=== PATIENT | male | born 1980 | race Hispanic/Latino ===

== ENCOUNTER 2022-04-18 23:04 | Observation (INO) | payer BC, SELFPAY ==
--- OUTSIDE RECORDS SUMMARY | 2022-04-18 23:07 | XMS REPORT | Continuity of Care Document ---
:1980 Author Organization [facility] t Address [address] [place] [address] Care Team Providers Name Role Phone PCP Primary Care Physician Unavailable Nila Bustos Attending Clinician Unavailable Eduardo WHITAKER S Attending Clinician Unavailable ALEKSEY Attending Clinician Unavailable Lab, Fam Pob I Attending Clinician Unavailable Ebrahim STUDENT Attending Clinician EBRAHIM Attending Clinician Unavailable Doctor Unassigned, Name Attending Clinician Unavailable Payers Payer Name Policy Type Policy Number Effective Date Expiration Date S ource Problems This patient has no known problems. Allergies, Adverse Reactions, Alerts Allergy Allergy Status Severity Reaction(s) Onset Inactive Treating Comm ents Source Name Type Date Date Clinician NO KNOWN Drug Active Univers ALLERGIE Class [facility] Social History Social Habit Start Date Stop Date Quantity Comments Source Exposure to Not sure [facility] SARS-CoV-2 (event) Medica l Branch Sex Assigned At [birth year] [facility] 00:00:00 00:00:00 [facility] Smoking Status Start Date Stop Date Source Unknown if ever smoked [facility] Medications This patient has no known medications. Procedures This patient has no known procedures. Encounters Start End Encounter Admission Attending Care Care Encounter Source Date/Time Date/Time Type Type Clinicians Facility Department ID 2021-06-22 2021-06-22 Telephone ISAURA Clark [id number] Univers 00:00:00 00:00:00 Elba Evie LEVAR [id number] [facility] [id number] Oleksandr as [phone] [address] 2021-06-21 2021-06-21 Outpatient R [facility] [id number] Univers 16:10:00 16:10:00 [id number] [facility] 2021-06-21 2021-06-21 Outpatient R ALEKSEY, [facility] [id number] Univers 16:10:00 16:10:00 A[place]RIA [facility] 2021-06-17 2021-06-17 Laboratory Lab, Adc Fam Pob I [facility] [id number] Univers 14:40:02 15:00:02 Only Petra Choi [facility] [id number] ity of [place] [id number] Oleksandr as Professio [phone] [address] Office [address] 2021-06-17 2021-06-17 Outpatient R ROSSANA [facility] [id number] Univers 14:20:00 14:20:00 JONATHONPALMA [facility] 2021-06-17 2021-06-17 Letter Doctor ISAURA [id number] Univers 00:00:00 00:00:00 (Out) Unassigned, LEVAR [id number] ity of [place] [facility] [id number] Oleksandr as [phone] [address] 2021-06-17 2021-06-17 Letter Doctor ISAURA [id number] Univers 00:00:00 00:00:00 (Out) Unassigned, LEVAR [id number] ity of [place] [facility] [id number] Oleksandr as [phone] [address] Results Test Description Test Time Test Comments Results Result Comments Source LIPID PANEL 2021-12-17 06:33:30 Test Item Value Reference Range Interpretation Comme nts CHOLESTEROL (test code = 2210) 222 MG/DL <200 H TRIGLYCERIDES (test code = 2232) 305 MG/DL <150 H HDL CHOLESTEROL (test code = 53 MG/DL >39 2220) CALC LDL CHOL (test code = 2237) 125 MG/DL <100 H NOTE: CALCULATED LDL IS BASED ON CAILIN-MARTIN METHOD WHICHINCLUDES A DJUSTABLE TRIGLYCERIDE:VL DL CHOLESTEROL RATIO.THIS FACT OR VARIES BY MEASURED TRIGLY CERIDE AND NON-HDLCHOLESTE ROL CONCENTRATIONS WITH INCREASED CALCULATED LDL SEENIN HIGHER T RIGLYCERIDE OR LOWER NON-HDL S PECIMENS. FOR MOREINFORMATION , SEE CLIENT ANNOUNCEMENT AT [email or web address] RATIO LDL/HDL (test code = 2.36 RATIO <3.55 2237) COMPREHENSIVE METABOLIC [id number] 06:33:30 Test Item Value Reference Range Interpretation Comments GLUCOSE (test code = 127 MG/DL 70-99 H 2216) BUN (test code = 11 MG/DL 6-20 2207) CREATININE (test 0.76 MG/DL 0.80-1.40 L code = 221) eGFR (2020 CKD-EPI) 114 >60 (test code = 35400) ML/MIN/1.73 CALC BUN/CREAT (test 14 RATIO 6-28 code = 2235) SODIUM (test code = 138 MEQ/L 101-940 6798) POTASSIUM (test code 4.4 MEQ/L 3.5-5.4 = 2227) CHLORIDE (test code 101 MEQ/L 95-107 = 2214) CARBON DIOXIDE (test 23 MEQ/L 19-31 code = 2206) CALCIUM (test code = 9.8 MG/DL 8.5-10.5 2208) PROTEIN, TOTAL (test 6.6 G/DL 6.1-8.3 code = 2229) ALBUMIN (test code = 4.0 G/DL 3.5-5.2 2200) CALC GLOBULIN (test 2.6 G/DL 1.9-3.7 code = 2240) CALC A/G RATIO (test 1.5 RATIO 1.0-2.6 code = 2234) BILIRUBIN, TOTAL <0.2 MG/DL See_Comment [Automated message] (test code = 2207) The [employer] which generated this result transmitted ref erence range: <=1.2. T he reference range was not used to int erpret this result as normal/abnormal . ALKALINE PHOSPHATASE 82 U/L 40-119 (test code = 2204) AST (test code = 22 U/L 9-50 2217) ALT (test code = 32 U/L 5-50 UNLE SS 2219) OTHERWISE INDIC ATED, ALL TESTING PER FORMED ATCLINICAL PATH [facility]LOGY LAB[facility]ATOR[facility], I [place]. [address] [place] [address] LABORATORY DIRE CTOR: JIMMIE MCNAIR M.D. ALEXXIA NUMBER [id number] CAP ACCREDITATION N O. [id number] HEMOGLOBIN [id number] 03:44:08 Test Item Value Reference Range Interpretation Comments HEMOGLOBIN A1c (test code = 26035) 6.2 % 4.2-5.6 H CBC W/AUTO DIFF WITH [id number] 02:23:37 Test Item Value Reference Range Interpretation Comments WBC (test code = 6.4 K/UL 3.5-11.0 1001) RBC (test code = 4.29 M/UL 4.50-6.10 L 1002) HEMOGLOBIN (test code 14.2 G/DL 13.5-17.0 = 1003) HEMATOCRIT (test code 38.8 % 40.0-51.0 L = 1004) MCV (test code = 90.4 fL 80.0-99.0 1005) MCH (test code = 33.1 PG 25.0-33.0 H 1006) MCHC (test code = 36.6 G/DL 31.0-36.0 H 1007) RDW (test code = 13.1 % 11.5-15.0 1038) NEUTROPHILS (test 62.1 % code = 1008) LYMPHOCYTES (test 27.1 % code = 1010) MONOCYTES (test code 6.1 % = 1011) EOSINOPHILS (test 3.7 % code = 1012) BASOPHILS (test code 0.5 % = 1013) IMMATURE GRANULOCYTES 0.5 % (test code = 1036) NUCLEATED RBCS (test 0.0 /100 See_Comment [Autom ated code = 1065) WBC'S message] The sy stem which generated this result transmitted reference range : 0.0. The refere nce range was not u sed to interpret th is result as normal/abnormal . PLATELET COUNT (test 269 K/UL 130-400 code = 1015) ABSOLUTE NEUTROPHILS 4.00 K/UL 1.50-7.50 (test code = 1066) ABSOLUTE LYMPHOCYTES 1.74 K/UL 1.00-4.00 (test code = 1067) ABSOLUTE MONOCYTES 0.39 K/UL 0.20-1.00 (test code = 1068) ABSOLUTE EOSINOPHILS 0.24 K/UL 0.00-0.50 (test code = 1040) ABSOLUTE BASOPHILS 0.03 K/UL 0.00-0.20 (test code = 1069) ABS IMMATURE 0.03 K/UL 0.00-0.10 GRANULOCYTES (test code = 1020) ABS NUCLEATED RBCS 0.00 K/UL 0.00-0.11 (test code = 11055) [facility] [address] [address] Patient Name: Higinio Tam Medical Record#: [id number] Address: [address] [place] [address] City/State/Zip: [place] [address]: Igor Bustos MD Insurance: Self Pay /Age/Sex: 1980/41/M Admit/Reg Date: 02/02/[address]: Eulogio Sepulveda DO Location: SETED/ PCP: PCP,UNKNOWN Date of Service: 02/02/22 Order (s): XR chest 1V CPT Code: 64575 Report Number: [id number] Reason for Exam: Chest Pain CHEST SINGLE VIEW: REASON FOR STUDY: Chest Pain FINDINGS: Cardiomediastinal structures are within normal limits. No pleural fluid or pulmonary infiltrates are identified. The bony architecture appears intact, where adequately seen. IMPRESSION: No active cardiopulmonary process is identified. Dictated By: Sherif Barrientos MD 02/02/2214 Signed By: Sherif Barrientos MD 02/02/2214 TD/TT: 02/02/22613 Tech: WVB02 cc: PCPUNK; PENKE02* Eulogio Sepulveda DO; PCP,UNKNOWN
[2022-04-18 23:56] LABS: Absolute Lymphocytes (CBC) 1.9 K/uL (0.7-4.9); Hematocrit 40.8 % (39.6-49.0); MPV 7.9 fL (7.6-11.3); Protime INR 0.82; RBC Red Blood Cell Count 4.46 M/uL (4.33-5.43)
[2022-04-18] MEDS ORDERED: MORPHINE 4 MG/ML SYR ONE (23:57)
[2022-04-18] MEDS ORDERED: ONDANSETRON 4 MG/2 ML VIAL ONE (23:57)
[2022-04-18] MEDS ORDERED: PANTOPRAZOLE 40 MG INJ ONE (23:57)
[2022-04-18] MEDS ORDERED: NA CHLORIDE 0.9% 500 ML ONE (23:58)
[2022-04-18] MEDS ORDERED: NA CHLORIDE 0.9% 1,000 ML ONE (23:58)
[2022-04-19 00:18] LABS: ALT/SGPT 54 U/L (12-78); AST/SGOT 27 U/L (15-37); Albumin 3.1 g/dL (3.4-5.0); Alkaline Phosphatase 71 U/L (45-117); BUN Blood Urea Nitrogen 14 mg/dL (7-18); Bicarbonate 26 mmol/L (21-32); Bilirubin Total 0.1 mg/dL (0.2-1.0); Glomerular Filtration Rate 86 ml/min (=/>90); Glucose Level 129 mg/dL (74-106); Lipase 249 U/L (73-393); Magnesium 1.8 mg/dL (1.8-2.4); NT PRO-BNP 34 pg/mL (<125); Potassium 4.6 mmol/L (3.5-5.1); Sodium Level 135 mmol/L (136-145); Troponin High Sensitivity 5.7 pg/mL (<58.9)
[2022-04-19 00:29] LABS: Bilirubin Direct < 0.1 mg/dL (0-0.2)
--- NOTE | 2022-04-19 01:42 | EDPHYS ---
Physician Documentation [facility] Name: Alan Tello Jr Age: 41 yrs Sex: Male : 1980 Arrival Date: 04/18/2022 Time: 23:04 Bed 5 Private MD: ED Physician Liam Em HPI: 04/18 23:32 This 41 yrs old Male presents to ER via Unassigned with complaints of Chest slade Pain. 23:32 The patient or guardian reports chest pain that is located primarily in the substernal slade area, anterior chest wall, right. Onset: 10 day(s) ago. The pain radiates to Associated signs and symptoms: The patient has no apparent associated signs or symptoms. The chest pain is described as a pressure. Duration: The patient or guardian reports multiple episodes, with no pattern. Modifying factors: The symptoms are alleviated by nothing. the symptoms are aggravated by nothing. Severity of pain: At its worst the pain was moderate in the emergency department the pain is unchanged. The patient has not experienced similar symptoms in the past. Historical: - Allergies: 23:39 No Known Allergies; vc1 - Home Meds: 23:39 lisinopril HCTZ 25-15 [Active]; vc1 - PSHx: 23:39 None; vc1 - Immunization history:: Adult Immunizations up to date, Client reports receiving the 2nd dose of the Covid vaccine. - Social history:: Smoking status: Patient reports the use of cigarette tobacco products, smokes two packs cigarettes per day. - Family history:: not pertinent. ROS: 23:32 Constitutional: Negative for fever, chills, and weight loss, Eyes: Negative for injury, slade pain, redness, and discharge, ENT: Negative for injury, pain, and discharge, Neck: Negative for injury, pain, and swelling, Cardiovascular: Negative for chest pain, palpitations, and edema, Respiratory: Negative for shortness of breath, cough, wheezing, and pleuritic chest pain, Back: Negative for injury and pain, : Negative for injury, bleeding, discharge, and swelling, MS/Extremity: Negative for injury and deformity, Skin: Negative for injury, rash, and discoloration, Neuro: Negative for headache, weakness, numbness, tingling, and seizure. 23:32 Abdomen/GI: Positive for abdominal pain, nausea, of the right upper quadrant. Exam: 23:32 Constitutional: This is a well developed, well nourished patient who is awake, alert, slade and in no acute distress. Head/Face: Normocephalic, atraumatic. Eyes: Pupils equal round and reactive to light, extra-ocular motions intact. Lids and lashes normal. Conjunctiva and sclera are non-icteric and not injected. Cornea within normal limits. Periorbital areas with no swelling, redness, or edema. ENT: Nares patent. No nasal discharge, no septal abnormalities noted. Tympanic membranes are normal and external auditory canals are clear. Oropharynx with no redness, swelling, or masses, exudates, or evidence of obstruction, uvula midline. Mucous membranes moist. Neck: Trachea midline, no thyromegaly or masses palpated, and no cervical lymphadenopathy. Supple, full range of motion without nuchal rigidity, or vertebral point tenderness. No Meningismus. Chest/axilla: Normal chest wall appearance and motion. Nontender with no deformity. No lesions are appreciated. Cardiovascular: Regular rate and rhythm with a normal S1 and S2. No gallops, murmurs, or rubs. Normal PMI, no JVD. No pulse deficits. Respiratory: Lungs have equal breath sounds bilaterally, clear to auscultation and percussion. No rales, rhonchi or wheezes noted. No increased work of breathing, no retractions or nasal flaring. Back: No spinal tenderness. No costovertebral tenderness. Full range of motion. Male : Normal genitalia with no discharge or lesions. Skin: Warm, dry with normal turgor. Normal color with no rashes, no lesions, and no evidence of cellulitis. MS/ Extremity: Pulses equal, no cyanosis. Neurovascular intact. Full, normal range of motion. Neuro: Awake and alert, GCS 15, oriented to person, place, time, and situation. Cranial nerves II-XII grossly intact. Motor strength 5/5 in all extremities. Sensory grossly intact. Cerebellar exam normal. Normal gait. Psych: Awake, alert, with orientation to person, place and time. Behavior, mood, and affect are within normal limits. 23:32 Abdomen/GI: Inspection: abdomen appears normal, Bowel sounds: normal, Palpation: moderate abdominal tenderness, in the right upper quadrant, Liver: no appreciated palpable abnormalities, Hernia: not appreciated. Vital Signs: 23:37 BP 125 / 72; Pulse 84; Resp 20; Temp 98.5(O); Pulse Ox 99% on R/A; Weight 108.86 kg; oe Height 5 ft. 9 in. (175.26 cm); 04/19 01:31 BP 133 / 71; Pulse 71; Resp 21 S; Pulse Ox 96% on R/A; as6 04:00 BP 121 / 67; Pulse 75; Resp 15 S; Pulse Ox 99% on R/A; as6 04/18 23:37 Body Mass Index 35.44 (108.86 kg, 175.26 cm) oe MDM: 04/18 23:22 Patient medically screened. slade 23:35 Differential diagnosis: abnormal EKG, acute myocardial infarction, anxiety, coronary slade artery disease chest wall pain, cholecystitis, Cholelithiasis esophagitis, hiatal hernia, pneumonia, stable angina, unstable angina. HEART Score: History: Slightly Suspicious (0), ECG: Normal (0), Age: < or = 45 years (0), Risk Factors: 1 or 2 risk factors (1), [+ Family HX] [Obesity] Troponin: < or = 1 x Normal Limit (0), Total Score = 1. The patient was given aspirin in the Emergency Department. The patient's deep vein thrombosis risk score was calculated as follows: Total Score: 0. This patient was found to be at low risk for a deep vein thrombosis by using the Well's assessment criteria. The patient's pulmonary embolism risk score was calculated as follows: Total Score: 0-2 points. This patient was found to be at low risk for a pulmonary embolism by using the Well's assessment criteria. ANASTASIIA Risk Score: TOTAL SCORE = 0. Data reviewed: vital signs, nurses notes, lab test result(s), EKG, radiologic studies, CT scan, ultrasound. Data interpreted: awake overnight monitor: rate is 84 beats/min, rhythm is regular, Pulse oximetry: on room air is 100 %. Test interpretation: by ED physician or midlevel provider: ECG, plain radiologic studies. Counseling: I had a detailed discussion with the patient and/or guardian regarding: the historical points, exam findings, and any diagnostic results supporting the discharge/admit diagnosis, lab results, radiology results. 04/18 23:32 Order name: Basic Metabolic Panel; Complete Time: 01:07 [facility] 04/18 23:32 Order name: CBC with Diff; Complete Time: 01:07 [facility] 04/18 23:32 Order name: LFT's; Complete Time: 01:07 [facility] 04/18 23:32 Order name: Magnesium; Complete Time: 01:07 [facility] 04/18 23:32 Order name: NT PRO-BNP; Complete Time: 01:07 [facility] 04/18 23:32 Order name: PT-INR; Complete Time: 01:07 [facility] 04/18 23:32 Order name: Troponin HS; Complete Time: 01:07 [facility] 04/18 23:32 Order name: XRAY Chest (1 view) [facility] 04/18 23:32 Order name: Lipase; Complete Time: 01:07 [facility] 04/18 23:32 Order name: CT Aorta for Dissection [facility] 04/18 23:32 Order name: US Abdomen Limited [facility] 04/19 02:47 Order name: CREATININE WHOLE BLOOD [facility] 04/19 04:44 Order name: COVID-19 SARS RT PCR (Document "Date of Onset" if Symptomatic) 04/19 06:06 Order name: SARS-COV-2 RT PCR [facility] 04/18 23:32 Order name: EKG; Complete Time: 23:33 [facility] 04/18 23:32 Order name: Cardiac monitoring; Complete Time: 23:36 [facility] 04/18 23:32 Order name: EKG - Nurse/Tech; Complete Time: 23:36 [facility] 04/18 23:32 Order name: IV Saline Lock; Complete Time: 23:49 [facility] 04/18 23:32 Order name: Labs collected and sent; Complete Time: 23:49 [facility] 04/18 23:32 Order name: O2 Per Protocol; Complete Time: 23:36 [facility] 04/18 23:32 Order name: O2 Sat Monitoring; Complete Time: 23:36 [facility] Administered Medications: 04/19 00:00 Drug: NS 0.9% 500 ml Route: IV; Rate: bolus; Site: right antecubital; as6 07:41 Follow up: Response: No adverse reaction; IV Status: Completed infusion; IV Intake: as6 500ml 00:00 Drug: NS 0.9% 1000 ml Route: IV; Rate: 125 ml/hr; Site: right antecubital; as6 07:42 Follow up: IV Status: Infusion continued upon admission as6 00:00 Drug: morphine 4 mg Route: IVP; Infused Over: 4 mins; Site: right antecubital; as6 07:41 Follow up: Response: No adverse reaction; RASS: Alert and Calm (0) as6 00:00 Drug: Zofran (Ondansetron) 4 mg Route: IVP; Site: right antecubital; as6 07:41 Follow up: Response: No adverse reaction as6 00:00 Drug: ProTONIX (pantoprazole) 40 mg Route: IVP; Site: right antecubital; as6 07:41 Follow up: Response: No adverse reaction as6 03:08 Drug: Nicoderm CQ Patch 21 mg/24 hr 1 patches Route: Transdermal; Site: affected area; as6 07:41 Follow up: Response: No adverse reaction as6 03:24 Drug: Zosyn (piperacillin-tazobactam) 3.375 grams Route: IVPB; Infused Over: 60 mins; as6 Site: right antecubital; 07:41 Follow up: Response: No adverse reaction; IV Status: Completed infusion; IV Intake: as6 100ml Disposition Summary: 04/19/22 01:41 Hospitalization Ordered Hospitalization Status: Observation slade Condition: Stable slade Problem: new slade Symptoms: have improved slade Bed/Room Type: Standard slade Location: [facility] ER HOLD(04/19/22 01:54) Room Assignment: ERHOLD-(04/19/22 01:54) Provider: Jack Salas(04/19/22 03:23) slade Diagnosis - Abdominal tenderness slade - Acute cholecystitis slade Forms: - Medication Reconciliation Form slade - SBAR form slade Signatures: Dispatcher [employer] Liam Barnett MD MD cha Garcia, Cindy, RN RN Cristian Melendez RN RN as6 Allie Kang RN RN vc1 Corrections: (The following items were deleted from the chart) 01:54 01:41 Telemetry/MedSurg (observation) slade 01:54 01:41 slade 03:23 01:41 Evelio Thurman cha, cha
--- NOTE | 2022-04-19 01:42 | ER ---
Nurse's Notes [facility] Name: Alan Tello Jr Age: 41 yrs Sex: Male : 1980 Arrival Date: 04/18/2022 Time: 23:04 Bed 5 Private MD: Diagnosis: Abdominal tenderness;Acute cholecystitis Presentation: 04/18 23:28 Chief complaint: Patient states: "I have been having this chest pain for about 3 weeks vc1 now but today it is worth. Coronavirus screen: Vaccine status: Patient reports receiving the 2nd dose of the covid vaccine. Edtrips. Ebola Screen: No symptoms or risks identified at this time. Risk Assessment: Do you want to hurt yourself or someone else? Patient reports no desire to harm self or others. Onset of symptoms is unknown. 23:28 Method Of Arrival: Ambulatory vc1 23:28 Acuity: ALEX 3 vc1 04/19 01:31 Initial Sepsis Screen: Does the patient meet any 2 criteria? No. Patient's initial as6 sepsis screen is negative. Does the patient have a suspected source of infection? No. Patient's initial sepsis screen is negative. Historical: - Allergies: 04/18 23:39 No Known Allergies; vc1 - Home Meds: 23:39 lisinopril HCTZ 25-15 [Active]; vc1 - PSHx: 23:39 None; vc1 - Immunization history:: Adult Immunizations up to date, Client reports receiving the 2nd dose of the Covid vaccine. - Social history:: Smoking status: Patient reports the use of cigarette tobacco products, smokes two packs cigarettes per day. - Family history:: not pertinent. Screenin/14 01:31 Abuse screen: Denies threats or abuse. Denies injuries from another. Nutritional as6 screening: No deficits noted. Tuberculosis screening: No symptoms or risk factors identified. Fall Risk None identified. Assessment: 04/18 23:40 General: Appears in no apparent distress. Behavior is calm, cooperative. Pain: as6 Complains of pain in xiphoid area. Pain: Complains of pain in epigastric area Pain radiates to back Quality of pain is described as sharp, shooting. Neuro: Moody Agitation-Sedation Scale (RASS): 0 - Alert and Calm Level of Consciousness is awake, alert, obeys commands, Oriented to person, place, time, situation. Cardiovascular: Reports chest pain, shortness of breath, Rhythm is regular. Respiratory: Reports shortness of breath Respiratory effort is even, unlabored, Respiratory pattern is regular, symmetrical. 04/19 01:30 Reassessment: "I feel almost completely better" Patient states symptoms have improved. as6 01:32 Pain: Pain began gradually. as6 Vital Signs: 04/18 23:37 BP 125 / 72; Pulse 84; Resp 20; Temp 98.5(O); Pulse Ox 99% on R/A; Weight 108.86 kg; oe Height 5 ft. 9 in. (175.26 cm); 04/19 01:31 BP 133 / 71; Pulse 71; Resp 21 S; Pulse Ox 96% on R/A; as6 04:00 BP 121 / 67; Pulse 75; Resp 15 S; Pulse Ox 99% on R/A; as6 04/18 23:37 Body Mass Index 35.44 (108.86 kg, 175.26 cm) oe ED Course: 04/18 23:04 Patient arrived in ED. ja2 23:22 Liam Em MD is Attending Physician. slade 23:36 Cristian Berkowitz, SHERMAN is Primary Nurse. as6 23:39 Triage completed. vc1 23:39 Arm band placed on right wrist. vc1 23:48 XRAY Chest (1 view) In Process Unspecified. EDMS 23:50 Inserted saline lock: 18 gauge in right antecubital area, using aseptic technique. as6 Blood collected. Patient maintains SpO2 saturation greater than 95% on room air. 04/19 00:22 US Abdomen Limited In Process Unspecified. EDMS 00:35 CT Aorta for Dissection In Process Unspecified. EDMS 01:32 Bed in low position. Call light in reach. Side rails up X2. Adult w/ patient. Client as6 placed on continuous cardiac and pulse oximetry monitoring. NIBP monitoring applied. Warm blanket given. 01:38 Evelio Thurman MD is Hospitalizing Provider. slade 03:21 Jack Salas MD is Hospitalizing Provider. slade 04:59 COVID swab sent to lab. wm 04:59 COVID-19 SARS RT PCR (Document "Date of Onset" if Symptomatic) Sent. wm 07:35 No provider procedures requiring assistance completed. Patient admitted, IV remains in as6 place. Administered Medications: 00:00 Drug: NS 0.9% 500 ml Route: IV; Rate: bolus; Site: right antecubital; as6 07:41 Follow up: Response: No adverse reaction; IV Status: Completed infusion; IV Intake: as6 500ml 00:00 Drug: NS 0.9% 1000 ml Route: IV; Rate: 125 ml/hr; Site: right antecubital; as6 07:42 Follow up: IV Status: Infusion continued upon admission as6 00:00 Drug: morphine 4 mg Route: IVP; Infused Over: 4 mins; Site: right antecubital; as6 07:41 Follow up: Response: No adverse reaction; RASS: Alert and Calm (0) as6 00:00 Drug: Zofran (Ondansetron) 4 mg Route: IVP; Site: right antecubital; as6 07:41 Follow up: Response: No adverse reaction as6 00:00 Drug: ProTONIX (pantoprazole) 40 mg Route: IVP; Site: right antecubital; as6 07:41 Follow up: Response: No adverse reaction as6 03:08 Drug: Nicoderm CQ Patch 21 mg/24 hr 1 patches Route: Transdermal; Site: affected area; as6 07:41 Follow up: Response: No adverse reaction as6 03:24 Drug: Zosyn (piperacillin-tazobactam) 3.375 grams Route: IVPB; Infused Over: 60 mins; as6 Site: right antecubital; 07:41 Follow up: Response: No adverse reaction; IV Status: Completed infusion; IV Intake: as6 100ml Medication: 07:35 VIS not applicable for this client. as6 Intake: 07:41 IV: 100ml; Total: 100ml. as6 07:41 IV: 500ml; Total: 600ml. as6 Outcome: 01:41 Decision to Hospitalize by Provider. slade 07:35 Admitted [facility]. [facility]. as6 07:35 Condition: stable 07:35 Instructed on the need for admit. 12:15 Patient left the ED. Signatures: Dispatcher [employer] EDLiam Leiva MD MD cha Smirch, Shelby, RN RN Sarthak Lee Wendy wm Alexander, Jessica ja2 Slawson, Ashby, RN RN as6 Pearl, Allie, RN RN vc1
[2022-04-19] MEDS ORDERED: PIPERACIL/TAZO 3.375 GM VIAL IV ONE ×2 (02:28→10:11)
[2022-04-19] MEDS ORDERED: NA CHLORIDE 0.9% 100 ML ONE ×2 (02:28→10:11)
[2022-04-19] MEDS ORDERED: NICOTINE 21 MG/PAT TD ONE (03:10)
[2022-04-19] MEDS ORDERED: SODIUM CHLORIDE 0.9% 10ML INJ IV PRN (05:08)
[2022-04-19] MEDS ORDERED: ONDANSETRON 4 MG/2 ML VIAL IV PRN (05:08)
[2022-04-19] MEDS ORDERED: MORPHINE 4 MG/ML SYR IV PRN ×2 (05:08→14:34)
[2022-04-19] MEDS ORDERED: ACETAMINOPHEN 500 MG TAB PO PRN (05:08)
[2022-04-19] MEDS: NA CHLORIDE 0.9% 1,000 ML IV SCH ×2 (05:08→15:56)
[2022-04-19] MEDS ORDERED: MORPHINE 4 MG/ML SYR ONE (05:15)
[2022-04-19] MEDS ORDERED: ONDANSETRON 4 MG/2 ML VIAL ONE ×2 (05:15→11:33)
[2022-04-19 07:40] VITALS: BMI 35.4
[2022-04-19] MEDS ORDERED: PIPER TAZO 3.375 GM in NA CHLORIDE 0.9% 100 ML IV SCH (09:00)
[2022-04-19] MEDS ORDERED: PANTOPRAZOLE 40 MG INJ IVP SCH (09:00)
[2022-04-19] MEDS ORDERED: PANTOPRAZOLE 40 MG INJ ONE ×2 (09:22→10:11)
--- NOTE | 2022-04-19 11:06 | EKG ---
Test Date: 2022-04-18 Test Time: 23:27:21 Early Breastfeeding Care Specialist: FRITZ MEASUREMENT RESULTS: Intervals: Rate: 84 AK: 202 QRSD: 84 QT: 358 QTc: 423 [place]: P: 70 AK: 202 QRS: 62 T: 52 INTERPRETIVE STATEMENTS: Normal sinus rhythm Normal ECG No previous ECG available for comparison Electronically Signed On 04-19-22 11:04:53 CDT by Zhao Jane
[2022-04-19] MEDS ORDERED: propofoL 200 MG/20 ML VIAL IV ONE (11:31)
[2022-04-19] MEDS ORDERED: FENTANYL CITR 100 MCG/2 ML ONE ×2 (11:32→13:22)
[2022-04-19] MEDS ORDERED: MIDAZOLAM HCL 2 MG/2 ML INJ ONE (11:32)
[2022-04-19] MEDS ORDERED: LIDOCAINE 1% MPF 5 ML VIAL ONE (11:32)
[2022-04-19] MEDS ORDERED: dexAMETHasone 10 MG/ML VIAL ONE (11:32)
[2022-04-19] MEDS ORDERED: ROCURONIUM 50 MG/5 ML VIAL IV ONE (11:33)
--- NOTE | 2022-04-19 12:48 | P.HP ---
Date of Service: 04/19/22 PC: This 41-year-old male presented to emergency room with severe right upper quadrant abdominal pain for diagnosis and treatment. HPC: Patient has been having intermittent bouts of abdominal pain over the last few months. Last night had a particularly severe 1, that doubles him over. The pain radiated into his back. Came to the emergency room PSHx: Negative PMHx: Hypertension Social Hx: No known allergies Sys R: No cough, wheeze, shortness of breath. No chest pain or palpitations. Denies any urinary complaints O/E: Awake alert comfortable at the moment HEENT: Nonicteric Chest: Air entry equal bilaterally Abd: Mild right upper quadrant tenderness [place]: Intact Data: Ultrasound and CT scan demonstrate acute on chronic cholecystitis with cholelithiasis Impression: Acute cholecystitis with biliary colic Plan: I will taken the operating room for laparoscopic possible open cholecystectomy with a cholangiogram. The risks of this procedure have been discussed. The possibility of bleeding, infection, injury to bile ducts blood vessels and intestines has been described. The possible need for an open and/or further surgeries and procedures have been discussed. He understands and wants us to proceed.
[2022-04-19] MEDS ORDERED: KETOROLAC 30 MG/ML INJ ONE (13:23)
--- NOTE | 2022-04-19 14:08 | P.OP ---
Preoperative diagnosis: Acute on chronic cholecystitis with cholelithiasis Postoperative diagnosis: The same Primary procedure: Laparoscopic cholecystectomy Secondary procedure: Cholangiogram Anesthesia: General Estimated blood loss: Less than 10 cc Specimen: Gallbladder and contents Operative Technique: Patient was brought the operating room placed supine on the table. After the i nduction of adequate general endotracheal anesthesia, the area of the abdomen was prepped with a DuraPrep solution, he was draped in the usual aseptic manner. A subumbilical incision was made. This was brought down through the skin and subcutaneous tissue. The Visiport was now used to enter the peritoneal cavity and created pneumoperitoneum to approximately 12 mmHg. Under direct vision a 5 mm trocar was placed in the upper midline, and 2 other 5 mm trochars on the right lateral side of the abdomen. We were able to visualize the right upper quadrant. With the patient placed in marked reverse Trendelenburg, and the table rolled to the left we could see the right upper quadrant. There there was a distended and acutely inflamed gallbladder. A grasper was placed on the fundus. Another was placed on by Prado's pouch. Applying lateral traction we were able to dissect out and expose the cystic duct and artery. Having obtained the critical view a clip was placed between the gallbladder and the cystic duct. An opening was made into the cystic duct through which we obtained a normal intraoperative cholangiogram the catheter was now removed. Clips were placed on the distal portion of the cystic duct. The cystic duct was now transected. Attention turned towards the artery which was clipped and divided. The gallbladder was now dissected free from the liver bed placed into an Endo Catch and brought out through the umbilical trocar site at this point the abdomen was inspected to ensure adequate hemostasis. The patient was returned to the neutral position on the OR table. The umbilical trocar site was approximated using 2 absorbable sutures placed using the Endo Close. At this point the pneumoperitoneum was collapsed, the sutures tied, and maria l were applied to the skin. At the end of the procedure he was stable was sent to the recovery room. Needle sponge instrument count were correct. No drains were placed. Complications: None Transferred to: Recovery Room Condition: Good
[2022-04-19] MEDS ORDERED: GLYCOPYRROLATE 0.2 MG/ML SYR ONE (14:09)
[2022-04-19] MEDS ORDERED: NEOSTIGMINE 1 MG/ML -10 ML VIAL ONE (14:10)
[2022-04-19] MEDS: HYDROMORPHONE HCL 1 MG/ML INJ ONE ×2 (14:25→14:30)
[2022-04-19] MEDS ORDERED: Ringers Lactate 1,000 ML IV ONE (14:30)
[2022-04-19] MEDS ORDERED: HYDROCODONE/APAP 7.5/325 MG TAB PO PRN (14:34)
[2022-04-19 14:48] VITALS: O2SAT 96
--- NOTE | 2022-04-19 14:53 | RAD REPORT ---
EXAM DESCRIPTION: Angio Aorta For Dissection CLINICAL HISTORY: 41 years Male chest/back pain COMPARISON: None TECHNIQUE: CT angiography of the chest, abdomen and pelvis was performed with axial dataset after rosio wily injection of intravenous contrast. Multiplanar reformation, 3D and MIP reconstructions were perfo rmed. This exam was performed according to our departmental dose-optimization program, which includes automated exposure control, adjustment of the mA and/or kV according to patient size and/or use of i terative reconstruction technique. FINDINGS: Chest: Aorta: No evidence of aortic dissection or aneurysm. Pulmonary arteries: No evidence of pulmonary embolism. Mediastinum: Unremarkable. No adenopathy. Heart: Heart is normal in size. No pericardial effusion. Lungs / airways: No consolidation. Airways are patent. Pleura: No significant pleural effusion. No pneumothorax. Osseous: Multilevel degenerative changes. Soft tissues: Unremarkable. Abdomen and pelvis: Liver: No focal lesions. Gallbladder: Cholelithiasis with gallbladder wall thickening. Pancreas: Within normal limits. Spleen: Within normal limits. Kidneys: No hydronephrosis. No focal lesion. Adrenal glands: Within normal limits. Vasculature: Unremarkable. Bowel: No bowel distention. Appendix: Within normal limits. Peritoneum: No free fluid or free air. Lymph Nodes: No lymphadenopathy. Reproductive: Unremarkable. Urinary bladder: Unremarkable. Osseous structures: Unremarkable. Soft tissues: Unremarkable. IMPRESSION: Chest: 1. No aortic dissection or aneurysm. 2. No pulmonary embolus or pneumonia. Abdomen and pelvis: 1. No aortic dissection or aneurysm. 2. Cholelithiasis without gallbladder wall thickening suspicious for cholecystitis. Recommend right u pper quadrant sonogram for further evaluation. Electronically signed by: Mook Garcia MD 04/19/2022 1:18 AM CDT Due to temporary technical issues with the PACS/Fluency reporting system, reports are being signed by the in house radiologists without review as a courtesy to insure prompt reporting. The interpreting radiologist is fully responsible for the content of the report.
--- NOTE | 2022-04-19 15:22 | RAD REPORT ---
EXAM DESCRIPTION: Abdomen Exam Limited RadLex: US ABDOMEN LIMITED CLINICAL HISTORY: ABD PAIN. COMPARISON: None. TECHNIQUE: Ultrasound of the gallbladder with Doppler flow imaging was obtained. FINDINGS: Gallbladder: Cholelithiasis, with a small gallstone seen. Mild gallbladder wall thickening of 0.4 cm. No pericholecystic fluid is identified. Bile ducts: No dilatation of the intrahepatic bile ducts. The common bile duct measures 0.5 cm in jose meter at the priya hepatis. IMPRESSION: 1. Cholelithiasis with mild gallbladder wall thickening. Consider correlation with [facility] medicine hepatobiliary scan if clinically necessary. 2. No biliary ductal dilatation. Electronically signed by: Cesilia Gonzalez MD 04/19/2022 12:36 AM CDT Due to temporary technical issues with the PACS/Fluency reporting system, reports are being signed by the in house radiologists without review as a courtesy to insure prompt reporting. The interpreting radiologist is fully responsible for the content of the report.
--- NOTE | 2022-04-19 15:24 | RAD REPORT ---
EXAM DESCRIPTION: Chest Single View CLINICAL HISTORY: 41-year-old male with chest pain. TECHNIQUE: Single view, AP portable chest was obtained. COMPARISON: None. FINDINGS: Unremarkable cardiac and mediastinal silhouette. Heart size is normal. Lungs are clear without focal opacity, pneumothorax or pleural effusions. The visualized bones are within normal limits. IMPRESSION: No acute cardiopulmonary abnormalities. Electronically signed by: Jo Ann Avalos MD 04/19/2022 12:04 AM CDT Due to temporary technical issues with the PACS/Fluency reporting system, reports are being signed by the in house radiologists without review as a courtesy to insure prompt reporting. The interpreting radiologist is fully responsible for the content of the report.
[2022-04-19 16:38] VITALS: BP 137/85; TEMP 98.4
--- NOTE | 2022-04-21 08:59 | RAD REPORT ---
EXAM DESCRIPTION: RAD - Cholangiogram Oper-Xray Or - 04/20/2022 2:37 pm CLINICAL HISTORY: LAP ERWIN WITH IOC COMPARISON: Abdomen Exam Limited dated 04/19/2022 FINDINGS: Cystic duct injection performed by operating surgeon. Common bile duct is normal caliber. No evidence of retained common bile duct stone. Total fluoro time: 0.2 minutes. Six fluoroscopic images submitted. IMPRESSION: No evidence of retained common bile duct stone.
== END 2022-04-19 19:03 | disposition home health service (06) ==
LOC: ER 23:04 → ERHOLD 04-19 01:44 → 2ND 04-19 13:05
PROVIDERS: ADMIT Surgery; ATTEND Surgery
PROC: BF00YZZ Plain Radiography of Bile Ducts using Other Contrast (ICD-10-PCS; 2022-04-19)
PROC: 0FT44ZZ Resection of Gallbladder, Percutaneous Endoscopic Approach (ICD-10-PCS; principal; 2022-04-19 12:30)
DX: K80.12 Calculus of gallbladder with acute and chronic cholecystitis without obstruction (principal); I10 Essential (primary) hypertension; F17.210 Nicotine dependence, cigarettes, uncomplicated; Z20.822 Contact with and (suspected) exposure to COVID-19
CPT/HCPCS: 36415; 71045; 71275; 74175; 74300; 76705; 80048; 80076; 82565; 83690; 83735; 83880; 84484; 85025; 85610; 88304; 93005; 94010; 96361; 96365; 96366; 96375; 99285; C9113; G0378; J1100; J1170; J2250; J2405; J2543; J2704; J2710; J3010; J7030; J7040; J7120; Q9967; U0003